=== PATIENT | female | born 1990 | race African-American/Black ===

== ENCOUNTER 2017-11-19 18:51 | Emergency (ER) | payer OTHER ==
[~2017-11-19] VITALS: Ht 162.6 cm; Wt 77.1 kg
[2017-11-19 18:58] VITALS: BP 144/86
[2017-11-19] MEDS ORDERED: IBUPROFEN 400 MG TAB PO ONE (19:05)
--- NOTE | 2017-11-19 19:36 | NUR ---
27/F CAME IN ED WITH FAMILY, C/O 10/10 CRAMPING/ACHING PAIN ON SIDES, LOWER ABD, AND BACK, X5 DAYS. PT REPORTS CHILLS, BODY ACHES, INCREASED PERSPIRATION. AOX4, AMBULATORY, SKIN INTACT WARM AND DRY. LUNG SOUNDS CLEAR BL. ABD SOFT ROUND TENDER ON LOWER QUADRANTS. TEMP 99.9 AT THIS TIME, PT WAS GIVEN IBUPROFEN IN TRIAGE, COOLING MEASURES ENSURED. PT DENIES N/V/D. HX VERTIGO. NKA. ER MADE AWARE.
[2017-11-19] MEDS ORDERED: NACL 0.9% 1,000 ML IV ONE (20:05)
[2017-11-19] MEDS ORDERED: KETOROLAC 30 MG/ML VIAL IVP ONE (20:05)
[2017-11-19 20:32] LABS: BASOPHILS # (AUTO) 0.1 K/uL (0.00-0.22); BASOPHILS % (AUTO) 0.9 % (0.0-2.0); EOSINOPHILS % (AUTO) 0.1 % (0.0-4.0); HEMATOCRIT 40.3 % (36-48); HEMOGLOBIN 13.4 g/dL (12.0-16.0); LYMPHOCYTES # (AUTO) 0.8 K/uL (2.5-16.5); LYMPHOCYTES % (AUTO) 10.8 % (20.5-51.1); MEAN CORPUSCULAR HEMOGLOBIN 31 pg (27-31); MEAN CORPUSCULAR HGB CONC 33 g/dL (33-37); MEAN CORPUSCULAR VOLUME 92.1 fL (80-94); MONOCYTES # (AUTO) 0.7 K/uL (0.8-1.0); NEUTROPHILS # (AUTO) 6.2 K/uL (1.8-7.7); NEUTROPHILS % (AUTO) 79.2 % (42.2-75.2); PLATELET COUNT (AUTO) 178 K/uL (140-450); RED BLOOD CELL COUNT(AUTO) 4.37 MIL/uL (4.20-5.40); RED CELL DISTRIBUTION WIDTH 13.9 % (11.6-13.7); WHITE BLOOD COUNT (AUTO) 7.8 K/uL (4.8-10.8)
[2017-11-19 20:34] LABS: BILIRUBIN,URINE NEGATIVE (NEGATIVE); BLOOD, URINE 3+ (NEGATIVE); COLOR,URINE YELLOW (YELLOW); LEUKOCYTE ESTERASE ,URINE 3+ (NEGATIVE); NITRITE, URINE NEGATIVE (NEGATIVE); UGLUCOSE NEGATIVE (NEGATIVE)
[2017-11-19 20:46] LABS: APPEARANCE,URINE HAZY (CLEAR); RBC,URINE 3-10 (FEW) /HPF (0-5)
[2017-11-19 20:47] LABS: WBC,URINE 20-60 /HPF (0-5)
[2017-11-19 20:49] LABS: ANION GAP 7.9 (8-16); CARBON DIOXIDE 28.3 mmol/L (21-32); CREATININE 0.9 mg/dL (0.6-1.3); POTASSIUM 3.2 mmol/L (3.5-5.1)
[2017-11-19 20:56] LABS: TOTAL BILIRUBIN 0.3 mg/dL (0.0-1.0)
[2017-11-19] MEDS ORDERED: cefTRIAXone 1,000 MG in LIDOCAINE MPF 1% - 5 mL VIAL 2.1 ML IM ONE (21:00)
[2017-11-19 21:29] VITALS: BP 125/75
--- NOTE | 2017-11-19 21:29 | NUR ---
Patient discharged with v/s stable. Written and verbal after care instructions given and explained. Patient alert, oriented and verbalized understanding of instructions. Ambulatory with steady gait. All questions addressed prior to discharge. ID band removed. Patient advised to follow up with PMD. Rx of abx given. Patient educated on indication of medication including possible reaction and side effects. Opportunity to ask questions provided and answered. Addendum: 11/19/17 at 2133 by BECKY rx [email or web address]
== END 2017-11-19 21:29 | disposition home or self-care (01) ==
LOC: MED 18:51
DX: N12 Tubulo-interstitial nephritis, not specified as acute or chronic (principal); E87.6 Hypokalemia; F17.210 Nicotine dependence, cigarettes, uncomplicated; Z71.6 Tobacco abuse counseling
CPT/HCPCS: 36415; 80053; 81001; 81025; 85025; 87086; 87186; 96372; 96374; 99284; J0696; J1885; J2001

== ENCOUNTER 2019-02-06 16:59 | Emergency (ER) | payer OTHER ==
[~2019-02-06] VITALS: Ht 167.6 cm; Wt 74.1 kg
[2019-02-06 17:01] VITALS: BP 133/87
[2019-02-06] MEDS ORDERED: cefTRIAXone 1,000 MG in LIDOCAINE MPF 1% 2.1 ML IM SCH (18:00)
[2019-02-06] MEDS ORDERED: DEXAMETHASONE 10 MG/ML VIAL IM SCH (18:00)
--- NOTE | 2019-02-06 18:00 | NUR ---
PT C/O NON PRODUCTIVE COUGH X 3 DAYS AND DIARRHEA 3 DAYS AGO. PT REPORTS STIFF NECK AND BODY ACHE BUT NO PAIN AT THIS PRESENT TIME. LUNGS CLEAR BILATERALLY. DENIES N/V AT THIS TIME; SKIN IS PINK/WARM/DRY; PT PRESENTS WITH A CLEAR SPEECH AND STEAD GAIT. PT DENIES ANY FEVER, CP, SOB AT THIS TIME; PATIENT POSITIONED FOR COMFORT; HOB ELEVATED; BEDRAILS UP X1; BED DOWN IN LOWEST POSITION. SISTER AT BEDSIDE. NKA NO PAST MEDICAL HISTORY
--- NOTE | 2019-02-06 18:25 | NUR ---
Patient discharged with v/s stable. Written and verbal after care instructions given and explained. Patient alert, oriented and verbalized understanding of instructions. Ambulatory with steady gait. All questions addressed prior to discharge. ID band removed. Patient advised to follow up with PMD. Rx of PROMETHAZINE, FLEXERIL, AMOXICILLIN, CEPACOL given. Patient educated on indication of medication including possible reaction and side effects. Opportunity to ask questions provided and answered.
[2019-02-06 18:26] VITALS: BP 133/87
== END 2019-02-06 18:25 | disposition home or self-care (01) ==
LOC: MED 16:59
DX: J02.9 Acute pharyngitis, unspecified (principal); B34.9 Viral infection, unspecified; M54.2 Cervicalgia
CPT/HCPCS: 96372; 99283; J0696; J1100; J2001

== ENCOUNTER 2019-05-10 15:58 | Emergency (ER) | payer OTHER ==
[~2019-05-10] VITALS: Ht 165.1 cm; Wt 74.4 kg
[2019-05-10 16:24] VITALS: BP 135/76
--- NOTE | 2019-05-10 16:34 | NUR ---
WAIT AT LOBBY
--- NOTE | 2019-05-10 16:48 | NUR ---
PT AMBULATED TO BED
--- NOTE | 2019-05-10 17:20 | NUR ---
BIB SELF C/O VAGINAL BLEEDING X1 DAY, PELVIC CRAMPING X3 DAYS. PT REPORTS TO HAVE CRAMPING THAT PROGRESSED TO VAGINAL BLEEDING YESTERDAY. PATIENT DENIES CLOTTING. 2 PERIPADS SOAKED SINCE LAST NIGHT. PELVIC CRAMPING 06/19. PT REPORTS TO BE 8 WEEKS . DENIES SOB/CP, N/V/D. AAOX3. SKIN COOL, DRY, INTACT. CAP REFILL <3 NO PMH NKA
--- NOTE | 2019-05-10 17:21 | NUR ---
US AT BEDSIDE
[2019-05-10 17:43] LABS: BASOPHILS % (AUTO) 0.4 % (0.0-2.0); EOSINOPHILS # (AUTO) 0.2 K/uL (0-0.4); EOSINOPHILS % (AUTO) 2.3 % (0.0-4.0); HEMATOCRIT 35.8 % (36-48); HEMOGLOBIN 11.7 g/dL (12.0-16.0); LYMPHOCYTES # (AUTO) 2.4 K/uL (2.5-16.5); LYMPHOCYTES % (AUTO) 30.2 % (20.5-51.1); MEAN CORPUSCULAR HEMOGLOBIN 29 pg (27-31); MEAN CORPUSCULAR HGB CONC 33 g/dL (33-37); MEAN CORPUSCULAR VOLUME 87.5 fL (80-94); MONOCYTES # (AUTO) 0.5 K/uL (0.8-1.0); MONOCYTES % (AUTO) 6.3 % (1.7-9.3); NEUTROPHILS # (AUTO) 4.9 K/uL (1.8-7.7); NEUTROPHILS % (AUTO) 60.8 % (42.2-75.2); PLATELET COUNT (AUTO) 319 K/uL (140-450); RED BLOOD CELL COUNT(AUTO) 4.09 MIL/uL (4.20-5.40); RED CELL DISTRIBUTION WIDTH 14.9 % (11.6-13.7); WHITE BLOOD COUNT (AUTO) 8.1 K/uL (4.8-10.8)
[2019-05-10 18:15] LABS: BILIRUBIN,URINE 1+ (NEGATIVE); BLOOD, URINE 3+ (NEGATIVE); LEUKOCYTE ESTERASE ,URINE NEGATIVE (NEGATIVE); NITRITE, URINE NEGATIVE (NEGATIVE); UGLUCOSE NEGATIVE (NEGATIVE)
[2019-05-10 18:24] LABS: APPEARANCE,URINE BLOODY (CLEAR); COLOR,URINE BROWN (YELLOW)
[2019-05-10 18:27] LABS: RBC,URINE TOO NUMEROUS TO COUN /HPF (0-5); WBC,URINE 0-5 /HPF (0-5)
[2019-05-10 19:27] VITALS: BP 112/71
--- NOTE | 2019-05-10 19:27 | NUR ---
Patient discharged with v/s stable. Written and verbal after care instructions given and explained. Patient verbalized understanding. Ambulatory with steady gait. All questions addressed prior to discharge. Advised to follow up with PMD.
== END 2019-05-10 19:27 | disposition home or self-care (01) ==
LOC: MED 15:58
DX: O46.91 Antepartum hemorrhage, unspecified, first trimester (principal); O26.91 Pregnancy related conditions, unspecified, first trimester; R10.30 Lower abdominal pain, unspecified; F17.210 Nicotine dependence, cigarettes, uncomplicated; R03.0 Elevated blood-pressure reading, without diagnosis of hypertension; Z71.6 Tobacco abuse counseling
CPT/HCPCS: 36415; 76817; 81001; 81025; 84702; 85025; 86900; 86901; 99284; Q0092

== ENCOUNTER 2021-01-29 09:22 | Emergency (ER) | payer OTHER ==
[~2021-01-29] VITALS: Ht 165.1 cm; Wt 75.7 kg
[2021-01-29 09:35] VITALS: BP 141/99
--- NOTE | 2021-01-29 09:38 | NUR ---
PT IN TENT
--- NOTE | 2021-01-29 09:39 | NUR ---
PT REQUESTED TO WAIT IN CAR. HUMA RENEE
--- NOTE | 2021-01-29 10:34 | NUR ---
PT TAKEN TO ER BED 1.
--- NOTE | 2021-01-29 10:41 | NUR ---
COLLECTED COVID MERCEDES AND STREP SWABS WALKED TO LAB.
--- NOTE | 2021-01-29 10:42 | NUR ---
31 Y/O FEMALE WITH C/O HEADACHE, RUNNY NOSE, AND SORE THOART X3 DAYS. PT DENIES N/V, SOB, AND CHEST PAIN AT THIS TIME. DENIES PMH NKA
[2021-01-29] MEDS ORDERED: PHEN177S23 PO (11:44)
[2021-01-29] MEDS ORDERED: PENI500T20 PO (11:44)
[2021-01-29 12:03] VITALS: BP 104/74
--- NOTE | 2021-01-29 12:03 | NUR ---
Patient discharged with v/s stable. Written and verbal after care instructions given and explained. Patient alert, oriented and verbalized understanding of instructions. Ambulatory with steady gait. All questions addressed prior to discharge. ID band removed. Patient advised to follow up with PMD. Rx of PHENOL AND PENICILLIN given. Patient educated on indication of medication including possible reaction and side effects. Opportunity to ask questions provided and answered.
== END 2021-01-29 12:03 | disposition home or self-care (01) ==
LOC: MED 09:22
DX: J02.0 Streptococcal pharyngitis (principal); Z20.822 Contact with and (suspected) exposure to COVID-19
CPT/HCPCS: 87081; 99283